=== PATIENT | female | born 1970 | race African-American/Black ===

== ENCOUNTER 2016-09-02 10:29 | Emergency (ER) | payer BC ==
--- NOTE | ~2016-09-02 | CT2 ---
[facility] A Service of [facility] & [facility] RADIOLOGY TEXT RESULTS PATIENT: WING JOHNSON LOCATION: SED : 68 UNIT #: [id number] AGE: [address]: TAPAN BARBER SEX: F ORDER DR: [id number] [address] [address] [id number] MR#: [id number] Acc #: [id number] NAME: WING JOHNSON. : 1970 SEX: F STUDY DATE/TIME: 09/02/2016 11:39 UNIT: SED ROOM: STUDY DESCRIPTION: CT Abd and Pelv W Cont Attending Physician: Tapan Barber Ordering Physician: Tapan Barber Primary Care Physician: Lavelle Coulter A.P.R.N. MEDICAL IMAGING REPORT This report is preliminary unless electronic signature is present. EXAM Abdomen and pelvis CT with contrast 09/02/2016 INDICATION 45-year-old female with abdominal pain since yesterday. Right lower quadrant pain since yesterday. History of hysterectomy. Hypertension. No history of malignancy. TECHNIQUE Contrast-enhanced abdomen and pelvis CT was performed. There are no comparisons. This CT examination was performed with one or more of the following radiation dose reduction techniques: automatic exposure control, adjustment of mA and/or kV according to patient size, and iterative reconstruction. FINDINGS CT ABDOMEN: Included lung bases demonstrate minimal atelectasis. No pleural or pericardial effusion. Aorta unremarkable. The spleen and adrenal glands are unremarkable. The pancreas is unremarkable and the gallbladder is contracted. The kidneys appear normal. There is a subtle oval-shaped area of enhancement in the right hepatic lobe measuring a centimeter, likely a benign finding such as a flash fill hemangioma or vascular shunt or area of focal nodular hyperplasia. If clinically desired or warranted, this could be further characterized with a pre- and postcontrast multiphase MRI or CT of the liver on a nonemergent basis. Incidental duodenal diverticulum. CT PELVIS: There is significant streak artifact related to prior right hip replacement. Uterus surgically absent. Bladder grossly unremarkable. Benign-appearing cyst in the right ovary measures 3 cm. No drainable fluid collection in the pelvis or free fluid. Minimal intermittent STS. [facility] A Service of [facility] & [facility] RADIOLOGY TEXT RESULTS PATIENT: WING JOHNSON LOCATION: SED : [birth year] UNIT #: [id number] AGE: [address]: TAPAN BARBER SEX: F ORDER DR: diverticulosis. The appendix is normal. Inguinal canals are unremarkable. Probable vascular calcifications in the pelvis. Osseous structures demonstrate degenerative change at L5-S1. IMPRESSION 1. There is a 3 cm physiologic appearing cyst in the right ovary. 2. The appendix is normal. No bowel obstruction, drainable fluid collection or focal area of inflammatory change. 3. 1 cm probably benign enhancing lesion in the right hepatic lobe. See discussion above regarding followup recommendations. Dictated by... Milind Linn M.D. THIS IS AN ELECTRONICALLY VERIFIED REPORT Milind Linn M.D. at 09/02/2016 4:33 PM MAGDIEL/vero TD: 09/02/2016 13:16 JOB #: [id number] MEDICAL IMAGING REPORT Page 1 of 1
[~2016-09-02 10:29] MED LIST: ANXIETY MED; AZITHROMYCIN250 MG PO; BP MED; METROGEL-VAGINA70 GM; PRILOSEC; ZOFRAN
[2016-09-02] MEDS ORDERED: ALEVE220 M1 (10:34)
[2016-09-02] MEDS ORDERED: TRIAMTERENE-HC1 EAC1 (10:35)
[2016-09-02] MEDS ORDERED: VICODIN (10:35)
[2016-09-02 11:07] LABS: BASOPHIL# 0.1 X10e3 (0-0.3); EOSINOPHIL# 0.3 X10e3 (0-0.7); EOSINOPHIL% 3.6 % (0.0-7.0); HEMATOCRIT 33.6 % (35.0-45.0); HEMOGLOBIN 11.7 gm/dL (12.0-16.0); LYMPHOCYTE# 2.2 X10e3 (1.0-3.5); LYMPHOCYTE% 27.6 % (17.0-45.0); MEAN CELL VOLUME 82.1 FL (83-96); MEAN CORPUSCULAR HEMOGLOBIN 28.6 PG (28-34); MEAN CORPUSCULAR HGB CONC 34.8 g/dL (30-36); MEAN PLATELET VOLUME 8.5 FL (6.5-11.5); MONOCYTE# 0.6 X10e3 (0-1.0); NEUTROPHIL# 4.9 X10e3 (1.5-7.1); NEUTROPHIL% 59.8 % (40-75); PLATELET COUNT 320 X10e3 (140-420); RED BLOOD COUNT 4.09 X10e (3.90-5.30); RED CELL DISTRIBUTION WIDTH 15.4 % (11.0-15.5); WHITE BLOOD COUNT 8.1 X10e3 (4.0-10.5)
[2016-09-02 11:07] LABS: URINE SOURCE CLEAN CATCH
[2016-09-02 11:10] LABS: URINE APPEARANCE CLEAR; URINE BILIRUBIN NEG (NEG); URINE BLOOD NEG (NEG); URINE COLOR YELLOW; URINE GLUCOSE NEG (NORM); URINE KETONE NEG (NEG); URINE LEUKOCYTE ESTERASE NEG (NEG); URINE NITRATE NEG (NEG); URINE PROTEIN NEG (NEG); URINE UROBILINOGEN 0.2 MG/DL (NORM)
[2016-09-02 11:12] LABS: MICRO INDICATED? NO
[2016-09-02 11:17] LABS: DIFF IND NO
[2016-09-02 11:29] LABS: ALBUMIN SERUM 3.5 g/dL (3.5-5.0); BILIRUBIN, DIRECT 0.1 mg/dL (0.0-0.2); BILIRUBIN,INDIRECT 0.3 mg/dL (0.0-0.9); BILIRUBIN,TOTAL 0.4 mg/dL (0.2-2.0); BUN/CREATININE RATIO 21.11; CALCIUM SERUM 8.3 mg/dL (8.4-10.2); CREATININE SERUM 0.9 mg/dL (0.6-1.4); GLOM FILT RATE Estimated 88.9 mL/min (>60); POTASSIUM 3.6 mmol/L (3.5-5.1); PROTEIN TOTAL SERUM 6.6 g/dL (6.0-8.3)
[2016-09-04 08:06] LABS: CHLAMYDIA TRACH Not Detected (Not Detected); N GONOR Not Detected (Not Detected)
== END 2016-09-02 12:25 | disposition home or self-care (01) ==
LOC: SED 10:29
PROVIDERS: Nurse Practitioner
DX: N76.0 Acute vaginitis (principal); I10 Essential (primary) hypertension; Z90.710 Acquired absence of both cervix and uterus; F17.290 Nicotine dependence, other tobacco product, uncomplicated; Z79.899 Other long term (current) drug therapy; Z79.1 Long term (current) use of non-steroidal anti-inflammatories (NSAID); Z79.891 Long term (current) use of opiate analgesic; Z88.2 Allergy status to sulfonamides
CPT/HCPCS: 36415; 74177; 80048; 80076; 81003; 82150; 83690; 84703; 85025; 87210; 87491; 87591; 87808; 87905; 99284; J2405; Q9967